=== PATIENT | male | born 1965 | race Caucasian/White ===

== ENCOUNTER → 2020-04-23 | Outpatient (CLI) | payer OTHER ==
[~2020-04-23] MED LIST: ZESTRIL5 MG; ZOCOR20 MG
== END ==
LOC: M.LAB 07:55
PROVIDERS: ATTEND Orthopaedic Surgery
DX: Z01.812 Encounter for preprocedural laboratory examination (principal); Z20.822 Contact with and (suspected) exposure to COVID-19; E87.6 Hypokalemia; M23.221 Derangement of posterior horn of medial meniscus due to old tear or injury, right knee

== ENCOUNTER → 2020-08-23 | Outpatient (CLI) | payer OTHER | LOC: M.ULTRA 14:59 | PROVIDERS: ATTEND Physician Assistant | DX: M71.21 Synovial cyst of popliteal space [Baker], right knee (principal); M79.661 Pain in right lower leg ==